=== PATIENT | female | born 1990 | race African-American/Black ===

== ENCOUNTER 2020-09-28 11:49 | Outpatient (CLI) | payer OTHER ==
[~2020-09-28] VITALS: Ht 170.2 cm; Wt 82.6 kg
[2020-09-28 12:06] VITALS: BP 115/63
[2020-09-28] MEDS ORDERED: ASPI81CH33 PO (12:25)
[2020-09-28] MEDS ORDERED: PRENTAB9 PO (12:25)
[2020-09-28] MEDS ORDERED: ACET325C5 PO (12:25)
--- NOTE | 2020-09-28 15:16 | IPNPDOC ---
Obstetrical Progress Note Date of Service September 28, 2020 Subjective 30 yo at 20w0d with RAVI of 15 FEB 2021 presents to L&D with complaints of persistent cramping and round ligament pain. She denies vaginal bleeding, leaking of fluid, and reports positive movement. She admits that she does not hydrate well. She has only had 2 16 oz bottles of water today. She denies dysuria, hematuria, frequency, vaginal discharge, and fever/chills. 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 Hx of PPROM at 17 weeks Sickle cell trait, spouse negative Assessment: Dehydration Assessment Heart Rate (FHR): 145 Assessment and Plan Age: 30 : 3 Term: 0 Pre-term: 1 Abortions: 1 Livin EGA at Admission: 20 (+0) Weeks & Days 20w0d Status: Reassuring Anticipate: Other (Discharge to home, certified not in labor) Additional Comments Recommended to increase hydration to 3-4 liters of water per day Recommended to keep all appointments with [employer] precautions discussed Recommended to return to L&D if symptoms worsen or persist 20 minutes of face to face time spent with the patient to for assessment and to discuss the plan with the patient. EDIL RUGGIERO CNM September 28, 2020 13:01
== END 2020-09-28 13:12 | disposition home or self-care (01) ==
LOC: M LDO 11:49
PROVIDERS: ATTEND Registered Nurse Maternal Newborn
DX: O26.892 Other specified pregnancy related conditions, second trimester (principal); R10.2 Pelvic and perineal pain; Z3A.20 20 weeks gestation of pregnancy
CPT/HCPCS: 81001; G0378; G0463

== ENCOUNTER 2020-09-30 13:19 | Day surgery (SDC) | payer OTHER, SELFPAY ==
[~2020-09-30 13:19] MED LIST: ACET325C5 PO; ASPI81CH33 PO; PRENTAB9 PO
[2020-09-30 14:05] LABS: HEMATOCRIT 32.8 % (36.0-47.0); HEMOGLOBIN 11.1 g/dl (12.0-15.5); MEAN CORPUSCULAR HEMOGLOBIN 28.2 pg (27.0-33.0); MEAN CORPUSCULAR HGB CONC 33.8 g/dl (32.0-36.5); MEAN CORPUSCULAR VOLUME 83.5 fl (80.0-96.0); PLATELET COUNT, AUTOMATED 211 10^3/uL (150-450); RED BLOOD COUNT 3.93 10^6/uL (4.00-5.40); WHITE BLOOD COUNT 7.1 10^3/uL (4.0-10.0)
[2020-09-30] MEDS ORDERED: propofoL 200 MG/20 ML VIAL As Ordered ONE (14:08)
[2020-09-30] MEDS ORDERED: ONDANSETRON 4MG/2ML VIAL As Ordered ONE (14:08)
[2020-09-30] MEDS ORDERED: LIDOCAINE 2% 100MG/5ML SDV (FOR ANES.) As Ordered ONE (14:08)
[2020-09-30] MEDS ORDERED: SUCCINYLCHOLINE 100 MG/5 ML SYRINGE (J0330) As Ordered ONE (14:08)
[2020-09-30 14:28] LABS: ALBUMIN 2.7 GM/DL (3.2-5.2); ALT/SGPT 27 U/L (12-78); BILIRUBIN,TOTAL 0.1 MG/DL (0.2-1.0); BLOOD UREA NITROGEN 6 MG/DL (7-18); CALCIUM LEVEL 8.4 MG/DL (8.5-10.1); CARBON DIOXIDE LEVEL 22 MEQ/L (21-32); CHLORIDE LEVEL 110 MEQ/L (98-107); CREATININE FOR GFR 0.34 MG/DL (0.55-1.30); GLOMERULAR FILTRATION RATE > 60.0 (>60); GLUCOSE, FASTING 80 MG/DL (70-100); POTASSIUM SERUM 3.8 MEQ/L (3.5-5.1); SODIUM LEVEL 140 MEQ/L (136-145); TOTAL PROTEIN 6.3 GM/DL (6.4-8.2)
[2020-09-30] MEDS ORDERED: fentaNYL 100 MCG/2 ML INJECTION (J3010) IV PRN (14:30)
[2020-09-30] MEDS ORDERED: LR 1,000 ML IV SCH (14:30)
[2020-09-30] MEDS ORDERED: PERCOCET 5MG/325MG TAB PO PRN (14:30)
[2020-09-30] MEDS ORDERED: MEPERIDINE INJ 25 MG/ML VIAL (J2175) IV PRN (14:30)
[2020-09-30] MEDS ORDERED: ONDANSETRON 4MG/2ML VIAL IV PRN (14:30)
[2020-09-30 15:00] VITALS: BP 125/83
[2020-09-30] MEDS ORDERED: ACETAMINOPHEN 500 MG TAB PO PRN (15:35)
[2020-09-30] MEDS ORDERED: INDOMETHACIN 25 MG CAP PO ONE (16:00)
--- NOTE | 2020-09-30 17:08 | ROOPDOC ---
[facility] Report Of Operation Report of Operation DATE OF PROCEDURE: 09/30/20 PREPROCEDURE DIAGNOSES: ultrasound diagnosed cervical insufficiency POSTPROCEDURE DIAGNOSES: exam diagnosed cervical insufficiency PROCEDURE: Ontiveros Cerclage SURGEON: Polo Bustillos DO LOKIE ENGINEER: Sajan Zelaya DO ANESTHESIA: general ESTIMATED BLOOD LOSS: Approximately 3 mL. COMPLICATIONS: None REMARKS: none PROCEDURE NOTE: I was contacted by [place] [facility] and explained that it was identified at the patient's anatomy scan that she had significant funneling with membranes and parts protruding through an almost immeasurable cervix. The anatomy was otherwise normal and cardiac activity noted. The patient was emergently transferred to the [facility] PACU where the risks, benefits, and alternatives of the procedure were discussed and written consent was obtained. She was taken to the OR where she was placed under general anesthesia and positioned in low lithotomy with her arms out. TVUS, now in Trendelenburg position, revealed a cervical length of 1.8cm although appearing dilated and non functional. Cardiac activity was reaffirmed at approx 130 bpm. She was first draped, then the perineum and vagina were prepped with the aid of a sterile speculum as to not disrupt the membranes. The bladder was drained and 300cc of urine was obtained. A weighted speculum was placed and the cervix grasped with ring forceps. There was approx 2cm of cervix distal to visible membranes. Mersaline tape was used in a purse string like fashion and tightened to create visually approx 2cm of functional cervix. TVUS was repeated and the cervical length was 3.5cm with significantly less funneling. cardiac activity was reaffirmed at approx. 130 bpm. There was no evidence of infection or rupture of membranes. The ring forcep and speculum were removed. There were no complications and the patient tolerated the procedure well. The sponge, lap, and needle counts were correct. She was transferred to the PACU in stable condition. Indomethicin was ordered for 48h of tocolysis. POLO BUSTILLOS DO September 30, 2020 17:08
--- NOTE | 2020-09-30 17:11 | IPNPDOC ---
Text Note Date of Service The patient was seen on 09/30/20. NOTE Per report of PACU nurses patient meeting criteria for discharge. I went to rovertot the patient and she states she is tolerating PO, ambulating, urinating, and passing flatus without issue. She initially had mild cramps but after the indomethicin has none. She denied VB, LOF, or decreased FM. I provided her with a script for indomethicin 50mg q6h PO for 48h and a slip for work excuse until Monday. I educated her on activity limitations to include pelvic rest (pools, baths, tampons, toys, intercourse) and light duty (refraining from heavy lifting or high impact activities). I educated her on return precautions to include heavy VB, LOF, decreased FM, contractions, fever, abnormal discharge, or any other concerning symptoms. I will see her for follow up this week and place a consult to [facility]. VS,Kodibone, I+O VS, Fishbone, I+O Laboratory Tests 09/30/20 13:21 09/30/20 13:22 Vital Signs Date Time Temp Pulse Resp B/P (MAP) Pulse Ox O2 Delivery O2 Flow Rate FiO2 09/30/20 15:00 98.6 81 16 125/83 (97) 100 Room Air 09/30/20 14:15 10.0 EKATERINA BUSTILLOS DO September 30, 2020 17:11
[2020-10-01] MEDS ORDERED: INDOMETHACIN 25 MG CAP PO SCH
== END 2020-09-30 15:31 | disposition home or self-care (01) ==
LOC: M SDC 13:19
PROVIDERS: ATTEND Obstetrics & Gynecology
DX: O34.32 Maternal care for cervical incompetence, second trimester (principal)
CPT/HCPCS: 59320; 80053; 85027; 86850; 86900; 86901; 87798; J0330; J2405

== ENCOUNTER 2020-11-26 14:36 | Outpatient (CLI) | payer OTHER ==
[2020-11-26] VITALS (23 sets, daily range): BP systolic 140–232; BP diastolic 81–121
[~2020-11-26] VITALS: Ht 170.2 cm; Wt 88.2 kg
[2020-11-26] MEDS ORDERED: MAG Sulf (OBGYN) 20GM/500ML 20,000 MG in IV 1 EA IV SCH (15:00)
[2020-11-26] MEDS ORDERED: NIFEdipine 10 MG CAP PO ONE (15:00)
[2020-11-26] MEDS ORDERED: BETAMETHASONE SOLUSPAN 6MG/ML 5ML VIAL (J0702 PER 3MG) IM SCH (15:00)
[2020-11-26] MEDS ORDERED: LR 1,000 ML IV SCH (15:00)
[2020-11-26] MEDS ORDERED: CALCIUM GLUCONATE 1,000 MG in D5W MINI-BAG PLUS 100 ML IV PRN (15:00)
[2020-11-26] MEDS ORDERED: MAG Sulf (L&D) 4 GM/100 ML 4 GM in IV 1 EA IV ONE (15:00)
[2020-11-26] MEDS ORDERED: ACET325C5 PO (15:14)
[2020-11-26] MEDS ORDERED: TUMS750C5 PO (15:14)
[2020-11-26] MEDS ORDERED: LABETALOL 100MG/20ML VIAL IV STA (15:17)
--- NOTE | 2020-11-26 15:46 | HPEPDOC ---
Obstetrical History & Physical General Date of Admission History of Present Illness Patient is a 30yo at 28w3d by LMP (11May2020) consistent with 9+3wk US (13 Jul 2020), RAVI Feb 25 sent to triage from antepartum testing today due to BP 181/89 with repeat of 172/87. Her OB history is signficant for a hx of preeclampsia/HELLP in prior with delivery at 32wks via PLTCS. Pt is overall without complaint and denies COX, vision changes, RUQ pain, N/V or dyspnea. She is also without OB complaint and denies ctx ,LOF, VB or discharge. Reports +GFM Chief Complaint: Other (Preeclampsia with severe features) Care Care: Good Care Dating Final EDC: Feb 15, 2021 Final EDC by: LMP LMP: May 11, 2020 Antepartum Course Diagnos(e)s 1. Preeclampsia w/ severe features (severe range BP) 2. Hx of preeclampsia/HELLP in prior - PLTCS at 32 weeks. On ASA 3. cervical insufficiency with (exam indicated) Ontiveros cerclage placed on 09/30/20 4. Hx of PPROM on Zulema - dose received today (11/26/20) while in antepartum testing 5. sickle cell trait, FOB neg 6. fibroid uterus, posterior left 5.4cm, anterior right 3.5cm Past Medical History Past Obstetrical History #1: Past Obstetrical History: Multigravida Gestation: 32 Type of Delivery: Ceserean section Complications: Yes (preeclampsia/HELLP) Past Obstetrical History #2: Past Obstetrical History: Multigravida Gestation: 17 Type of Delivery: Spontaneous Vaginal Del. Complications: Yes (PPROM) [employer]TER History: Uterine fibroids Past Medical History Medical History SC trait Surgical History: section, Other (Ontiveros cerclage 09/30/20) Family History Significant Family History: No pertinent family hx Social History Marital Status: Family situation: Spouse/partner home * Smoker: non-smoker Alcohol: Denies Drugs: denies Imunizations Tdap status: current (11/19/20) Allergies Coded Allergies: Penicillins (Verified Allergy, Severe, 11/26/20) difficult to breathe Medications Scheduled Aspirin (Aspirin) 81 Mg Tab.chew, 2 TABS PO DAILY for pain No.137/Iron/Folic Acd ( Vitamin Tablet) 1 Each Tablet, 1 TAB PO DAILY Scheduled PRN Acetaminophen (Tylenol) 325 Mg Capsule, 650 MG PO Q6HP PRN for MILD DISCOMFORT Calcium Carbonate (Tums) 300 Mg Tab.chew, 1 TAB PO Q6HP PRN for INDIGESTION Miscellaneous Medications Acetaminophen (Tylenol) 325 Mg Capsule, 325 MG PO Physical Examination Physical Examination GENERAL: Alert and oriented times three. BREAST: . ABDOMEN: Gravid and non-tender to touch. HEART RATE: Regular rate and rhythm. LUNGS: Clear to auscultation (CTA). EXTREMITIES: No edema. No clonus. Deep tendon reflexes (DTRs) + 1. Vital Signs/I&O BP 208/100 with repeat (manual cuff) of 180/90 HR 65 Temp 98.2 Laboratory Data CBC/BMP Lab results pending Pertinent Laboratoy Data Blood Type: O+ RBC Antibody Screen: Negative HIV: Negative Hepatitis B: Negative Rapid Plasma Reagin: Nonreactive Rubella: Immune Varicella: Nonreactive Chlamydia/Gonorrhea: Negative Anatomy Ultrasound Placenta Location: Posterior Normal Anatomy: Yes Placenta Previa: No Steroid Therapy Steroid Therapy: Yes Assessment Heart Rate (FHR): 130 Variability: Moderate Decelerations: None Tocometer Contractions: No Assessment/Plan Assessment 30yo at 28w3d by LMP c/w 9wk US, RAVI 15 Feb 2021 with preclampsia w/ severe features (severe range BP) Plan labetalol IV 20mg administered for acute treatment of BP. Repeat 150's/80s Mag 4g bolus with 2g/hr maintenance started at 1517 Betamethasone 12mg IM at 1522 Labs pending Patient to be transferred to [place] due to gestational age <32wks. PHUONG CHAWLA M.D. Nov 26, 2020 15:46
[2020-11-26 15:50] LABS: APPEARANCE, URINE CLEAR (CLEAR); BACTERIA, URINE AUTO NEGATIVE (NEGATIVE); BILIRUBIN, URINE AUTO NEGATIVE (NEGATIVE); BLOOD, URINE BLOOD NEGATIVE (NEGATIVE); COLOR, URINE YELLOW (YELLOW); GLUCOSE, URINE (UA) AUTO NEGATIVE (NEGATIVE); KETONE, URINE AUTO NEGATIVE (NEGATIVE); LEUKOCYTE ESTERASE, URINE AUTO NEGATIVE (NEGATIVE); NITRITE, URINE AUTO NEGATIVE (NEGATIVE); PROTEIN, URINE AUTO 3+ mg/dL (NEGATIVE); RBC, URINE AUTO 1 /HPF (0-3); SPECIFIC GRAVITY URINE AUTO 1.015 (1.002-1.035); SQUAMOUS EPITHELIAL CELL UR AU 0 /HPF (0-6); UROBILINOGEN, URINE AUTO 0.2 mg/dL (0.0-2.0); WBC, URINE AUTO 1 /HPF (0-3)
[2020-11-26] MEDS ORDERED: hydrALAZINE 20MG/ML 1ML VIAL (J0360 PER 20MG) IV STA (16:16)
[2020-11-26 16:17] LABS: TOTAL PROTEIN,RANDOM URINE 267.8 MG/DL (0.0-12.0)
[2020-11-26 16:25] LABS: ALT/SGPT 21 U/L (12-78); BILIRUBIN,TOTAL < 0.1 MG/DL (0.2-1.0); CREATININE FOR GFR 0.73 MG/DL (0.55-1.30); GLOMERULAR FILTRATION RATE > 60.0 (>60); LDH LACTATE DEHYDROGENASE 212 U/L (84-246)
[2020-11-26 16:43] LABS: HEMATOCRIT 37.7 % (36.0-47.0); HEMOGLOBIN 12.6 g/dl (12.0-15.5); MEAN CORPUSCULAR HEMOGLOBIN 27.9 pg (27.0-33.0); MEAN CORPUSCULAR HGB CONC 33.4 g/dl (32.0-36.5); MEAN CORPUSCULAR VOLUME 83.4 fl (80.0-96.0); PLATELET COUNT, AUTOMATED 213 10^3/uL (150-450); RED BLOOD COUNT 4.52 10^6/uL (4.00-5.40); WHITE BLOOD COUNT 5.2 10^3/uL (4.0-10.0)
[2020-11-26] MEDS ORDERED: NIFEdipine 30 MG XL TAB PO STA (17:02)
[2020-11-27] MEDS ORDERED: NIFEdipine 30 MG XL TAB PO SCH (09:00)
== END 2020-11-26 18:20 | disposition short-term general hospital (02) ==
LOC: M LDO 14:36
PROVIDERS: ATTEND Obstetrics & Gynecology
DX: O14.13 Severe pre-eclampsia, third trimester (principal); Z3A.28 28 weeks gestation of pregnancy; O09.293 Supervision of pregnancy with other poor reproductive or obstetric history, third trimester; Z88.0 Allergy status to penicillin; Z79.82 Long term (current) use of aspirin; Z79.899 Other long term (current) drug therapy
CPT/HCPCS: 59025; 81001; 82247; 82565; 82570; 83615; 84156; 84450; 84460; 84550; 85027; G0378; G0463; J0360; J0702; J3475

== ENCOUNTER 2021-11-23 10:47 | Day surgery (SDC) | payer OTHER ==
[~2021-11-23] VITALS: Ht 170.2 cm; Wt 83.0 kg
[~2021-11-23 10:47] MED LIST changes: +ACETAMINOPHEN 500 MG TAB PO ONE; +LABE100T4 PO; +NIFE30TA50 PO; +TUMS750C5 PO
[2021-11-23] MEDS ORDERED: LR 1,000 ML IV SCH ×2 (11:20→13:00)
[2021-11-23 11:33] LABS: HEMATOCRIT 38.2 % (36.0-47.0); HEMOGLOBIN 12.6 g/dl (12.0-15.5)
[2021-11-23] MEDS ORDERED: dexameTHASONE 4 MG/ML 1ML VIAL (J1100 PER 1MG) As Ordered ONE (12:06)
[2021-11-23] MEDS ORDERED: propofoL 200 MG/20 ML VIAL As Ordered ONE (12:06)
[2021-11-23] MEDS ORDERED: CHLOROPROCAINE PRES. FREE 2% 20ML VIAL As Ordered ONE (12:06)
[2021-11-23] MEDS ORDERED: LIDOCAINE 2% 100MG/5ML SDV (FOR ANES.) As Ordered ONE (12:06)
[2021-11-23] MEDS ORDERED: ONDANSETRON 4MG 2ML VIAL As Ordered ONE (12:06)
[2021-11-23] MEDS ORDERED: fentaNYL 100 MCG/2 ML INJECTION As Ordered ONE (12:06)
[2021-11-23] MEDS ORDERED: METOCLOPRAMIDE INJ 10MG/2ML VIAL (J2765 PER 1) As Ordered ONE (12:06)
[2021-11-23] MEDS ORDERED: ePHEDrine SULFATE 25 MG/5 ML(5MG/ML) SYRINGE As Ordered ONE (12:21)
[2021-11-23] MEDS ORDERED: ONDANSETRON 4MG 2ML VIAL IV PRN (13:00)
[2021-11-23] MEDS ORDERED: fentaNYL 100 MCG/2 ML INJECTION IV PRN (13:00)
[2021-11-23] MEDS ORDERED: HYDROMORPHONE HCL 0.5 MG/ 0.5 ML SYRINGE (J1170 PER 1) IV PRN (13:00)
[2021-11-23] MEDS ORDERED: oxyCODONE 5MG TAB PO PRN (13:00)
[2021-11-23] MEDS ORDERED: INDOMETHACIN 25 MG CAP PO ONE (13:20)
[2021-11-23 14:20] VITALS: BP 132/78
[2021-11-23] MEDS ORDERED: INDOMETHACIN 25 MG CAP PO SCH (22:00)
== END 2021-11-23 14:30 | disposition home or self-care (01) ==
LOC: M SDC 10:47
PROVIDERS: ATTEND Obstetrics & Gynecology
DX: O34.32 Maternal care for cervical incompetence, second trimester (principal); Z79.82 Long term (current) use of aspirin; Z79.899 Other long term (current) drug therapy; O10.012 Pre-existing essential hypertension complicating pregnancy, second trimester; Z3A.15 15 weeks gestation of pregnancy
CPT/HCPCS: 36415; 59320; 85014; 85018; 86850; 86900; 86901; 87086; J1100; J2400; J2405; J2765; J3010

== ENCOUNTER 2022-02-16 12:40 | Outpatient (CLI) | payer OTHER ==
[~2022-02-16] VITALS: Ht 170.2 cm; Wt 85.0 kg
[~2022-02-16 12:40] MED LIST changes: -ACETAMINOPHEN 500 MG TAB PO ONE; -LABE100T4 PO; +LABE100T6 PO
[2022-02-16 12:58] VITALS: BP 159/89
[2022-02-16] MEDS ORDERED: LR 1,000 ML IV SCH (13:00)
[2022-02-16] MEDS ORDERED: BETAMETHASONE SOLUSPAN 6MG/ML 5ML VIAL (J0702 PER 3MG) IM SCH (13:00)
[2022-02-16 13:15] VITALS: BP 156/90
[2022-02-16 13:31] LABS: BASO % 0.7 % (0.0-1.0); EOS # 0.1 10^3/uL (0.0-0.5); EOS % 2.1 % (0.0-3.0); HEMATOCRIT 39.2 % (36.0-47.0); LYMPH % 36.2 % (24.0-44.0); MEAN CORPUSCULAR HEMOGLOBIN 28.6 pg (27.0-33.0); MEAN CORPUSCULAR HGB CONC 33.2 g/dl (32.0-36.5); MEAN CORPUSCULAR VOLUME 86.2 fl (80.0-96.0); MONO # 0.7 10^3/uL (0.0-0.8); MONO % 12.8 % (2.0-8.0); NEUTROPHILS # 2.7 10^3/uL (1.5-8.5); NEUTROPHILS % 47.8 % (36.0-66.0); PLATELET COUNT, AUTOMATED 237 10^3/uL (150-450); RED BLOOD COUNT 4.55 10^6/uL (4.00-5.40); WHITE BLOOD COUNT 5.6 10^3/uL (4.0-10.0)
[2022-02-16 13:32] LABS: APPEARANCE, URINE MANUAL CLEAR (CLEAR); COLOR, URINE MANUAL YELLOW (YELLOW); GLUCOSE, URINE (UA) MANUAL NEGATIVE (NEGATIVE); KETONE, URINE MANUAL NEGATIVE (NEGATIVE); SPECIFIC GRAVITY,URINE MANUAL 1.015 (1.002-1.035)
[2022-02-16 13:33] LABS: BILIRUBIN, URINE MANUAL NEGATIVE (NEGATIVE); BLOOD URINE MANUAL NEGATIVE (NEGATIVE); LEUKOCYTE ESTERASE, URINE MAN NEGATIVE (NEGATIVE); NITRITE, URINE MANUAL NEGATIVE (NEGATIVE)
[2022-02-16 13:36] LABS: PROTEIN, URINE MANUAL 2+ mg/dL (NEGATIVE)
[2022-02-16 13:37] LABS: UROBILINOGEN, URINE MANUAL NORMAL (NORMAL)
[2022-02-16] MEDS ORDERED: MAGNESIUM *L&D* 4GM/100ML BAG (40MG/ML) As Ordered ONE (13:48)
[2022-02-16] MEDS ORDERED: MAGNESIUM SULFATE 4% INJ 20GM/500ML (40MG/ML) As Ordered ONE (13:48)
[2022-02-16 13:50] LABS: BACTERIA, URINE SMALL AMOUNT; HYALINE CAST, URINE NONE SEEN /lpf (0-1); RBC, URINE 0-1 /hpf (0-3); SQUAMOUS EPITHELIAL CELL URINE SMALL AMOUNT /hpf (SMALL AMT); WBC, URINE 0-1 /hpf (0-3)
[2022-02-16] MEDS ORDERED: MAG Sulf (L&D) 4 GM/100 ML 4 GM in IV 1 EA IV ONE (13:50)
[2022-02-16 13:52] VITALS: BP 154/81
[2022-02-16 14:10] LABS: TOTAL PROTEIN,RANDOM URINE 55.5 MG/DL (0.0-12.0)
[2022-02-16] MEDS ORDERED: MAG Sulf (OBGYN) 20GM/500ML 20,000 MG in IV 1 EA IV SCH (14:10)
[2022-02-16 14:13] VITALS: BP 150/86
[2022-02-16 14:17] LABS: ALT/SGPT 24 U/L (12-78); BILIRUBIN,TOTAL 0.2 MG/DL (0.2-1.0); CREATININE FOR GFR 0.58 MG/DL (0.55-1.30); GLOMERULAR FILTRATION RATE > 60.0 (>60); LDH LACTATE DEHYDROGENASE 183 U/L (84-246); URIC ACID 5.5 MG/DL (2.6-6.0)
[2022-02-16 14:28] VITALS: BP 155/88
== END 2022-02-16 14:59 ==
LOC: M LDO 12:40
PROVIDERS: ATTEND Advanced Practice Midwife
DX: O36.5920 Maternal care for other known or suspected poor fetal growth, second trimester, not applicable or unspecified (principal); O10.012 Pre-existing essential hypertension complicating pregnancy, second trimester; O34.219 Maternal care for unspecified type scar from previous cesarean delivery; Z3A.27 27 weeks gestation of pregnancy; Z88.0 Allergy status to penicillin; Z79.899 Other long term (current) drug therapy
CPT/HCPCS: 59025; 81000; 81002; 82247; 82565; 82570; 83615; 84156; 84450; 84460; 84550; 85025; 86780; 87635; 96360; 96372; G0378; G0463; J0702; J3475